=== PATIENT | male | born 1980 | race Caucasian/White ===

== ENCOUNTER 2016-08-12 22:31 | Emergency (ER) | payer OTHER | END 2016-08-12 23:38 | disposition home or self-care (01) | LOC: D.ER 22:31 | DX: S63.601A Unspecified sprain of right thumb, initial encounter (principal); W10.9XXA Fall (on) (from) unspecified stairs and steps, initial encounter; Y93.89 Activity, other specified; Y92.019 Unspecified place in single-family (private) house as the place of occurrence of the external cause; F17.200 Nicotine dependence, unspecified, uncomplicated ==